=== PATIENT | male | born 1930 | race Caucasian/White ===

== ENCOUNTER → 2016-03-24 | Outpatient (CLI) | payer OTHER, MEDICARE | LOC: MMPC 11:11 | DX: M25.511 Pain in right shoulder (principal); E55.9 Vitamin D deficiency, unspecified; I10 Essential (primary) hypertension; E78.5 Hyperlipidemia, unspecified; R00.1 Bradycardia, unspecified; Z95.0 Presence of cardiac pacemaker; D69.6 Thrombocytopenia, unspecified; Z85.46 Personal history of malignant neoplasm of prostate | CPT/HCPCS: 99212; G0463 ==

== ENCOUNTER → 2016-04-06 | Outpatient (CLI) | payer OTHER, MEDICARE ==
[2016-04-06 15:56] LABS: BASOPHILS # (AUTO) 0.05 10*3/UL; BASOPHILS % (AUTO) 0.7 % (0-1); EOSINOPHILS % (AUTO) 4.4 % (0-8); HEMATOCRIT 48.2 % (42.0-52.0); HEMOGLOBIN 16.5 g/dL (14.0-18.0); IMM GRAN % (AUTO) 0.3 % (0-5); IMM GRAN# (AUTO) 0.02 10*3/UL; LYMPHOCYTES # (AUTO) 1.15 10*3/uL; MEAN CORPUSCULAR HEMOGLOBIN 32.9 PG (27-31); MEAN CORPUSCULAR HGB CONC 34.2 g/dL (33-37); MEAN PLATELET VOLUME 10.7 FL (7.4-12.2); MONOCYTES # (AUTO) 0.81 10*3/UL (0.3-0.8); MONOCYTES % (AUTO) 11.9 % (5-15); NEUTROPHILS # (AUTO) 4.45 10*3/UL; NEUTROPHILS % (AUTO) 65.7 % (50-80); RDW COEFFICIENT OF VARIATION 13.6 % (11.5-14.5); RED BLOOD COUNT 5.01 10^6/uL (4.70-6.10); WHITE BLOOD COUNT 6.78 10^3/uL (4.8-10.8)
[2016-04-06 15:57] LABS: PLATELET MORPHOLOGY COMMENT NORMAL MORPHOLOGY (NORM)
== END ==
LOC: MOB LAB 13:27
DX: I10 Essential (primary) hypertension (principal); E55.9 Vitamin D deficiency, unspecified
CPT/HCPCS: 36415; 82306; 84443; 85025

== ENCOUNTER → 2016-04-27 | Outpatient (CLI) | payer OTHER, MEDICARE ==
--- NOTE | 2016-04-27 20:53 | DI ---
CT CHEST W/O CONTRAST,04/27/2016 1:46 PM: Clinical History: Nodule of the left lung. Previous Exam: April 01, 2010. Findings: Multiple helically acquired CT images are obtained through the chest without contrast, and demonstrat e clear lungs. There is some subsegmental atelectasis in the lung bases and some stable scarring with in the lingula. This remains unchanged. There is a calcified granuloma within the posterior left lowe r lobe. Diffuse degenerative changes of the spine are noted. There are stable axillary and mediastinal lymph nodes which are nonpathologic by size criteria. There is a new pacemaker within the left anterior chest wall. Impression: All of the nodules visible on the prior exam are stable. This is long-term stability and no further f ollowup is necessary.
== END ==
LOC: CT 13:38
DX: R91.1 Solitary pulmonary nodule (principal)
CPT/HCPCS: 71250

== ENCOUNTER → 2016-06-06 | Outpatient (CLI) | payer OTHER, MEDICARE | LOC: MMPC 09:00 | DX: M25.511 Pain in right shoulder (principal); R00.1 Bradycardia, unspecified; E78.5 Hyperlipidemia, unspecified; M10.9 Gout, unspecified; E55.9 Vitamin D deficiency, unspecified; Z85.46 Personal history of malignant neoplasm of prostate | CPT/HCPCS: 99213; G0463 ==